=== PATIENT | male | born 1950 | race Two or more races ===

== ENCOUNTER 2020-01-10 08:30 | Day surgery (SDC) | payer OTHER ==
[~2020-01-10 08:30] MED LIST: FENOFIBRATE PO; FORTAMET1000 MG PO; HYDROCHLOROTH12.5 MG PO; IBERSARTAN PO; NORVASC5 MG PO; NOXIFOL-D32500 UNIT PO
[2020-01-10] MEDS ORDERED: PERCOCET 5-3251 EACH PO (10:59)
== END 2020-01-10 12:20 | disposition home or self-care (01) ==
LOC: CIR.AMB 08:30
PROVIDERS: ATTEND Surgery
DX: C20 Malignant neoplasm of rectum (principal); Z20.828 Contact with and (suspected) exposure to other viral communicable diseases